=== PATIENT | female | born 1950 | race Caucasian/White ===

== ENCOUNTER 2018-05-14 06:52 | Day surgery (SDC) | payer MEDICARE, OTHER ==
[~2018-05-14] VITALS: Ht 154.9 cm; Wt 59.0 kg
[~2018-05-14 06:52] MED LIST: ARAVA10 MG PO; BACTRIM DS1 TAB OR; CALCIUM600 M1 PO; ESTRACE VAG0.1 MG/GM VA; FLONASE AL50 MCG/ACT; FOLIC ACID1 MG PO; MACROBID100 MG PO; MULTI VIT PO; PERCOCET 5/325M1 TAB PO; PHILLIPS PO; PROTONIX40 M2 PO; PYRIDIUM200 MG OR; RHEUMATREX2.5 M1 PO
[2018-05-14 10:30] VITALS: BP 112/58
== END 2018-05-14 10:52 | disposition home or self-care (01) ==
LOC: ENDO 06:52
PROVIDERS: ATTEND Surgery
PROC: 0DJ08ZZ Inspection of Upper Intestinal Tract, Via Natural or Artificial Opening Endoscopic (ICD-10-PCS; principal; 2018-05-14)
PROC: 0DJD8ZZ Inspection of Lower Intestinal Tract, Via Natural or Artificial Opening Endoscopic (ICD-10-PCS; 2018-05-14)
DX: R13.10 Dysphagia, unspecified (principal); K44.9 Diaphragmatic hernia without obstruction or gangrene; Z12.11 Encounter for screening for malignant neoplasm of colon; K57.30 Diverticulosis of large intestine without perforation or abscess without bleeding; K21.9 Gastro-esophageal reflux disease without esophagitis; E78.00 Pure hypercholesterolemia, unspecified; M19.90 Unspecified osteoarthritis, unspecified site; Z86.010 Personal history of colon polyps
CPT/HCPCS: 43235; G0105

== ENCOUNTER → 2018-11-20 | Outpatient (REF) | payer MEDICARE, OTHER | END | disposition home or self-care (01) | LOC: DI 12:33 | PROVIDERS: ATTEND Nurse Practitioner Family | DX: M25.511 Pain in right shoulder (principal) ==

== ENCOUNTER 2020-04-15 03:42 | Emergency (ER) | payer MEDICARE, OTHER ==
[~2020-04-15] VITALS: Ht 154.9 cm; Wt 62.3 kg
[2020-04-15] MEDS ORDERED: RHEUMATREX2.5 M1 PO (04:10)
[2020-04-15] MEDS ORDERED: FOLIC ACID1 MG PO (04:10)
[2020-04-15] MEDS ORDERED: ARAVA20 MG PO (04:11)
[2020-04-15 04:34] LABS: HEMATOCRIT 37.8 % (37.0-47.0); HEMOGLOBIN 11.8 g/dl (12.0-16.0); IMMATURE GRANULOCYTES 0.4 % (0.0-5.0); MEAN CORPUSCULAR HGB 29.4 pG CALC (26.0-32.0); MEAN CORPUSCULAR HGB CONC 31.2 g/dL CAL (32.0-36.0); NEUT# 3.04 thou/uL (2.00-7.15); RED BLOOD COUNT 4.02 mill/uL (4.20-5.60); RED CELL DISTRI WIDTH 14.4 % (11.5-15.5)
[2020-04-15 04:47] LABS: ALBUMIN 3.8 g/dL (3.2-5.0); ALKALINE PHOSPHATASE 68 u/l (38-126); AMYLASE 68 u/l (30-110); ANION GAP 8 (6-22 (CALC)); BILIRUBIN, TOTAL 0.3 mg/dL (0.0-1.4); BUN 19 mg/dL (8-23); BUN/CREATININE RATIO 31 (12-20 (CALC)); CARBON DIOXIDE 24 mmol/l (22-30); CHLORIDE 109 mmol/l (95-108); CREATININE 0.6 mg/dL (0.5-1.0); GFR > 60 ML/MIN (>=60 (CALC)); GFR FOR AFR.AMER. > 60 ML/MIN (>=60 (CALC)); LIPASE 141 u/l (23-300); POTASSIUM 3.6 mmol/l (3.5-5.1); SGOT/AST 34 u/l (9-36); SODIUM 137 mmol/l (137-146); TOTAL PROTEIN 6.5 g/dL (6.3-8.2)
[2020-04-15 04:58] LABS: D-DIMER 0.37 mg/L (0.19-0.60); MYOGLOBIN 24 ng/mL (0 - 62)
[2020-04-15 05:04] LABS: ACT PARTIAL THROMBO TIME 24.9 SECONDS (20.0-32.5); PROTHROMBIN TIME 9.7 SECONDS (9.0-12.5)
[2020-04-15] MEDS ORDERED: TORADOL PO (09:13)
[2020-04-15 09:15] VITALS: BP 126/62
== END 2020-04-15 09:15 | disposition home or self-care (01) ==
LOC: ED 03:42
PROVIDERS: Family Medicine
DX: R07.9 Chest pain, unspecified (principal); M54.6 Pain in thoracic spine; M79.7 Fibromyalgia; K21.9 Gastro-esophageal reflux disease without esophagitis

== ENCOUNTER → 2022-05-21 | Day surgery (SDC) | payer MEDICARE, OTHER ==
[~2022-05-21] VITALS: Ht 154.9 cm; Wt 65.3 kg
[~2022-05-21] MED LIST changes: +ARAVA20 MG PO; +AZELASTINE HCL0.1 %; +CALTRATE 600+D31 TAB PO; +DESVENLAFAXINE50 MG PO; +PREDNISONE5 MG PO; +TORADOL PO; +VITAMIN D1000 UNIT PO; +ZYRTEC10 MG PO
[2022-05-21 11:10] VITALS: BP 115/60
== END | disposition home or self-care (01) ==
LOC: ENDO 08:13 → ORM 10:30 → ENDO 10:30
PROVIDERS: ATTEND Internal Medicine Gastroenterology
PROC: 0DBE8ZX Excision of Large Intestine, Via Natural or Artificial Opening Endoscopic, Diagnostic (ICD-10-PCS; principal; 2022-05-21)
PROC: 0DB98ZX Excision of Duodenum, Via Natural or Artificial Opening Endoscopic, Diagnostic (ICD-10-PCS; 2022-05-21)
PROC: 0DB78ZX Excision of Stomach, Pylorus, Via Natural or Artificial Opening Endoscopic, Diagnostic (ICD-10-PCS; 2022-05-21)
DX: K52.9 Noninfective gastroenteritis and colitis, unspecified (principal); K57.30 Diverticulosis of large intestine without perforation or abscess without bleeding; K64.8 Other hemorrhoids; K44.9 Diaphragmatic hernia without obstruction or gangrene; K21.00 Gastro-esophageal reflux disease with esophagitis, without bleeding; K29.50 Unspecified chronic gastritis without bleeding; B96.81 Helicobacter pylori [H. pylori] as the cause of diseases classified elsewhere; E88.09 Other disorders of plasma-protein metabolism, not elsewhere classified; M06.9 Rheumatoid arthritis, unspecified; E78.5 Hyperlipidemia, unspecified; Z86.010 Personal history of colon polyps

== ENCOUNTER 2024-08-10 07:45 | Day surgery (SDC) | payer MEDICARE, OTHER ==
[~2024-08-10] VITALS: Ht 154.9 cm; Wt 69.9 kg
[~2024-08-10 07:45] MED LIST changes: +ASPIRIN 81 LOW81 MG PO; +LIPITOR20 M1 PO; +ORENCIA125 MG/ML SC; +PROLIA60 MG/ML SC; +SB ALLERGY10 MG PO; +[UNRECOGNIZED DRUG - OTHER]
[2024-08-10] MEDS ORDERED: FAMOTIDINE 10MG/ML 2ML SDV IV ONE (07:48)
[2024-08-10] MEDS ORDERED: LACTATED RINGER'S 1,000 ML IV ONE (07:48)
[2024-08-10 09:41] VITALS: BP 120/70
[2024-08-10] MEDS ORDERED: LIDOCAINE HCL 2% 2ML SDV IV ONE (11:35)
[2024-08-10] MEDS ORDERED: PROPOFOL 200 MG/20 ML VIAL IV ONE (11:35)
[2024-08-18] MEDS ORDERED: LANSOPRAZOLE30 MG PO (13:01)
== END 2024-08-10 10:00 | disposition home or self-care (01) ==
LOC: ENDO 07:45 → ORM 11:15
PROVIDERS: ATTEND Surgery
PROC: 0DB48ZX Excision of Esophagogastric Junction, Via Natural or Artificial Opening Endoscopic, Diagnostic (ICD-10-PCS; principal; 2024-08-10)
PROC: 0DB78ZX Excision of Stomach, Pylorus, Via Natural or Artificial Opening Endoscopic, Diagnostic (ICD-10-PCS; 2024-08-10)
PROC: 0DB68ZX Excision of Stomach, Via Natural or Artificial Opening Endoscopic, Diagnostic (ICD-10-PCS; 2024-08-10)
PROC: 0DB58ZX Excision of Esophagus, Via Natural or Artificial Opening Endoscopic, Diagnostic (ICD-10-PCS; 2024-08-10)
DX: K21.00 Gastro-esophageal reflux disease with esophagitis, without bleeding (principal); K31.89 Other diseases of stomach and duodenum; G47.30 Sleep apnea, unspecified; M06.9 Rheumatoid arthritis, unspecified; E78.5 Hyperlipidemia, unspecified; Z86.0100 Personal history of colon polyps, unspecified

== ENCOUNTER 2024-08-29 11:19 | Emergency (ER) | payer MEDICARE, OTHER ==
[~2024-08-29] VITALS: Ht 154.9 cm; Wt 70.0 kg
[2024-08-29] VITALS (11 sets, daily range): BP systolic 106–163; BP diastolic 55–127
[~2024-08-29 11:19] MED LIST changes: +LANSOPRAZOLE30 MG PO
[2024-08-29] MEDS ORDERED: methylPREDNISolone SODIUM SUCC 125 MG/2 ML SDV IV ONE (11:45)
[2024-08-29] MEDS ORDERED: IPRATROPIUM-Albuterol 0.5MG-2.5MG/3 ML NEB ONE ×2 (11:45)
[2024-08-29 12:38] LABS: BASO% 1.5 % (0-3); EOS% 5.2 % (0-8); HEMATOCRIT 41.2 % (37.0-47.0); HEMOGLOBIN 13.2 g/dl (12.0-16.0); IMMATURE GRANULOCYTES 0.5 % (0.0-5.0); LYMPH% 15.8 % (15-41); MEAN CELL VOLUME 93.6 fL CALC (80.0-100.0); MONO% 12.9 % (2-13); NEUT# 3.98 thou/uL (2.00-7.15); NEUT% 64.1 % (42-76); RED BLOOD COUNT 4.4 mill/uL (4.20-5.60); RED CELL DISTRI WIDTH 13.3 % (11.5-15.5)
[2024-08-29 12:39] LABS: ALBUMIN 4.3 g/dL (3.2-5.0); ALKALINE PHOSPHATASE 48 u/l (38-126); ANION GAP 10 (6-22 (CALC)); BILIRUBIN, TOTAL 0.4 mg/dL (0.02-1.3); BUN 11 mg/dL (8-23); BUN/CREATININE RATIO 17 (12-20 (CALC)); CARBON DIOXIDE 29 mmol/l (22-30); CHLORIDE 102 mmol/l (95-108); CREATININE 0.6 mg/dL (0.5-1.0); ESTIMATED GFR 94 ML/MIN (>=90 (CALC)); SGOT/AST 35 u/l (9-36); SODIUM 137 mmol/l (137-146); TOTAL PROTEIN 6.8 g/dL (6.3-8.2)
[2024-08-29 12:40] LABS: POTASSIUM 3.7 mmol/l (3.5-5.1)
[2024-08-29] MEDS ORDERED: BENZONATATE150 MG PO (14:46)
[2024-08-29] MEDS ORDERED: VENTOLIN HFA108 MCG IN (14:46)
[2024-08-29] MEDS ORDERED: PREDNISONE20 MG PO (14:46)
== END 2024-08-29 15:23 | disposition home or self-care (01) ==
LOC: ED 11:19
PROVIDERS: Family Medicine
DX: B34.9 Viral infection, unspecified (principal); R05.9 Cough, unspecified; R06.02 Shortness of breath; Z20.822 Contact with and (suspected) exposure to COVID-19
CPT/HCPCS: Q9967